=== PATIENT | female | born 1985 | race American Indian/Alaskan Native ===

== ENCOUNTER 2016-12-20 00:31 | Outpatient (CLI) | payer MEDICAID, OTHER | END 2016-12-20 02:18 | disposition home or self-care (01) | LOC: TRG 00:31 | PROVIDERS: ATTEND Obstetrics & Gynecology | DX: O62.9 Abnormality of forces of labor, unspecified (principal); Z87.891 Personal history of nicotine dependence; Z3A.38 38 weeks gestation of pregnancy ==

== ENCOUNTER 2016-12-22 20:07 | Outpatient (CLI) | payer SELFPAY ==
[2016-12-22 21:04] LABS: Hematocrit 33.1 % (30.3-42.9); Hemoglobin 11.1 gm/dl (10.1-14.3); Mean Corpuscular HGB Conc 34 % (30-34); Mean Corpuscular Hemoglobin 31 pg (28-32); Mean Corpuscular Volume 93 fl (79-97); Platelet Count 228 K/mm3 (140-440); Red Blood Count 3.57 M/mm3 (3.65-5.03); Red Cell Distribution Width 13.5 % (13.2-15.2); White Blood Count 9.1 K/mm3 (4.5-11.0)
[2016-12-22 21:17] LABS: Alanine Aminotransferase 9 units/L (7-56); Lactate Dehydrogenase 147 units/L (91-180); Uric Acid 3.3 mg/dL (3.5-7.6)
[2016-12-22 21:33] LABS: Bacteria,Urine 2+ /HPF (Negative); Bilirubin,Urine NEG (Negative); Blood,Urine NEG (Negative); Ketones,Urine NEG (Negative); Leukocyte Esterase,Urine LG (Negative); Mucus,Urine FEW /HPF; Nitrite,Urine NEG (Negative); Protein,Urine <15 mg/dL mg/dL (Negative); Urobilinogen,Urine < 2.0 mg/dL (<2.0)
[2016-12-22 21:52] VITALS: BP 132/70
[2016-12-22] MEDS ORDERED: TYLENOL PO ONE (22:00)
== END 2016-12-22 22:10 | disposition home or self-care (01) ==
LOC: TRG 20:07
PROVIDERS: ATTEND Obstetrics & Gynecology
DX: O47.1 False labor at or after 37 completed weeks of gestation (principal); Z87.891 Personal history of nicotine dependence; Z3A.38 38 weeks gestation of pregnancy
CPT/HCPCS: 36415; 59025; 81001; 82565; 83615; 84450; 84460; 84550; 85027

== ENCOUNTER 2017-01-01 00:04 | Outpatient (CLI) | payer SELFPAY ==
[2017-01-01 03:26] VITALS: BP 127/74
== END 2017-01-01 04:02 | disposition home or self-care (01) ==
LOC: TRG 00:04 → LD 00:11 → TRG 04:02
PROVIDERS: ATTEND Obstetrics & Gynecology
DX: O26.892 Other specified pregnancy related conditions, second trimester (principal); R10.2 Pelvic and perineal pain; Z87.891 Personal history of nicotine dependence; Z3A.39 39 weeks gestation of pregnancy
CPT/HCPCS: 59025

== ENCOUNTER 2017-01-01 15:35 | Inpatient (IN) | payer OTHER ==
[2017-01-01] MEDS ORDERED: XYLOCAINE 2% INFILTRATI ONE ×2 (19:08→23:22)
[2017-01-01] MEDS ORDERED: NARCAN 0.4 MG/1 ML IV PRN (19:08)
[2017-01-01] MEDS ORDERED: SUBLIMAZE IV PRN (19:08)
[2017-01-01] MEDS ORDERED: PHENERGAN PO PRN ×2 (19:08→23:47)
[2017-01-01] MEDS ORDERED: MINERAL OIL PO PRN (19:08)
[2017-01-01] MEDS ORDERED: STADOL IV PRN (19:08)
[2017-01-01] MEDS ORDERED: BRETHINE SUB-Q PRN (19:08)
[2017-01-01] MEDS ORDERED: ePHEDrine SULFATE IV PRN ×2 (19:08→21:00)
[2017-01-01] MEDS ORDERED: BRETHINE IVP PRN (19:08)
[2017-01-01] MEDS ORDERED: ZOFRAN IV PRN ×2 (19:08→23:47)
[2017-01-01] MEDS ORDERED: NUBAIN IV PRN (19:08)
--- NOTE | 2017-01-01 19:15 | History and Physical Report ---
History of Present Illness Date of examination: 01/01/17 Date of admission: 01/01/17 15:36 Chief complaint: contractions History of present illness: This is a 31 yo at 40 weeks here for contractions and noted to be 5/80/-2. She was admitted to labor and delivery Her course began at [facility] at 13 weeks. she has a hx of anemia on iron tablets. Past History Past Medical History: no pertinent history Past Surgical History: no surgical history, other (asthma ) [employer]ELOPER History: abnormal PAP smear, chlamydia, other (condylomma accuminata ) Family/Genetic History: hypertension, other (lung disease emphysema ) Social history: single, smoking, other (marijuana ). denies: alcohol abuse, prescription drug abuse - Obstetrical History Expected Date of Delivery: 01/02/17 Actual Gestation: 39 Week(s) 6 Day(s) : 3 Para: 2 Hx # Term Pregnancies: 2 Number of Pregnancies: 0 Spontaneous Abortions: 0 Induced : 0 Number of Living Children: 2 Medications and Allergies Allergies Allergy/AdvReac Type Severity Reaction Status Date / Time No Known Allergies Allergy Verified 01/01/17 16:42 Home Medications Medication Instructions Recorded Confirmed Last Taken Type ALBUTEROL NEB's [Proventil 0.083% 2.5 mg IH Q4H PRN #25 neb 11/03/14 01/01/17 Rx NEBS] Review of Systems All systems: negative Genitourinary: contractions - Vital Signs Vital signs: Vital Signs Pulse BP 113 H 126/78 01/01/17 15:51 01/01/17 15:51 Temp Pulse Resp BP Pulse Ox 98.4 F 97 H 20 149/84 100 01/01/17 16:44 01/01/17 18:51 01/01/17 16:44 01/01/17 18:42 01/01/17 18:51 - Physical Exam Breasts: Positive: deferred Cardiovascular: Regular rate, Normal S1 Lungs: Positive: Clear to auscultation, Normal air movement Abdomen: Positive: normal appearance, soft, normal bowel sounds. Negative: distention, tenderness Genitourinary (Female): Positive: normal external genitalia, normal perenium Vulva: both: normal Vagina: Positive: normal moisture Uterus: Positive: normal size, normal contour Anus/Rectum: Positive: normal perianal skin Extremities: Positive: normal Deep Tendon Reflex Grade: Normal +2 - Obstetrical FHR: category 1 Uterine Contraction Monitor Mode: External Cervical Dilatation: 5 Cervical Effacement Percentage: 80 station: -1 Uterine Contraction Pattern: Regular Uterine Tone Measurement Phase: Contraction Uterine Contraction Intensity: Moderate Results All other labs normal. Assessment and Plan A/P IUP 39+6 weeks active labor GBS neg - no antibiotics needed ivf, labs offered epidural expect vaginal delivery
[2017-01-01 19:21] LABS: Hematocrit 33.6 % (30.3-42.9); Hemoglobin 11.2 gm/dl (10.1-14.3); Mean Corpuscular HGB Conc 33 % (30-34); Mean Corpuscular Hemoglobin 31 pg (28-32); Mean Corpuscular Volume 94 fl (79-97); Platelet Count 226 K/mm3 (140-440); Red Blood Count 3.59 M/mm3 (3.65-5.03); White Blood Count 13.4 K/mm3 (4.5-11.0)
[2017-01-01] MEDS ORDERED: PITOCin/NS 30 UNIT/500ML 30 UNITS/500 ML BAG IV SCH ×2 (20:00)
[2017-01-01] MEDS ORDERED: PITOCin/NS 20 UNIT/1000ML DRIP 20 UNITS/1,000 ML BAG IV SCH ×2 (20:00→23:45)
[2017-01-01] MEDS ORDERED: LACTATED RINGERS 1,000 ML IV SCH (20:00)
[2017-01-01] MEDS ORDERED: ePHEDrine SULFATE ONE (20:26)
[2017-01-01] MEDS ORDERED: NARCAN 2 MG/2 ML IV PRN (21:00)
[2017-01-01] MEDS ORDERED: fentaNYL-BUPIV 2 MCG/ML-0.125% 200 MCG/100 ML BAG EPIDURAL SCH (21:00)
--- NOTE | 2017-01-01 21:01 | Anesthesia Consultation ---
Anesthesia Consult and Med Hx Date of service: 01/01/17 - Airway Anesthetic Teeth Evaluation: Good ROM Head & Neck: Adequate Mental/Hyoid Distance: Adequate Mallampati Class: Class II Intubation Access Assessment: Probably Good - Pulmonary Exam CTA: Yes - Cardiac Exam Cardiac Exam: RRR - Pre-Operative Health Status ASA Pre-Surgery Classification: ASA2 Proposed Anesthetic Plan: Epidural, Spinal - Pulmonary Hx Asthma: Yes (albuterol inhaler; last used yesterday on 12/31/16) COPD: No Hx Pneumonia: No - Cardiovascular System Hx Hypertension: No - Central Nervous System Hx Seizures: No Hx Psychiatric Problems: No - Endocrine Hx Renal Disease: No Hx End Stage Renal Disease: No Hx Hypothyroidism: No Hx Hyperthyroidism: No - Hematic Hx Anemia: No Hx Sickle Cell Disease: No - Other Systems Hx Alcohol Use: No Hx Obesity: Yes - Additional Comments Anesthesia Medical History Comments: +IUP
[2017-01-01] MEDS ORDERED: SENOKOT S PO SCH (23:45)
[2017-01-01] MEDS ORDERED: SODIUM CHLORIDE FLUSH SYRINGE 10 ML IV NR (23:45)
--- NOTE | 2017-01-01 23:46 | Procedure Note ---
OB Delivery Note - Delivery Date of Delivery: 01/01/17 Surgeon: OBDULIO TEJEDA Estimated blood loss: 300cc - Vaginal Delivery presentation: vertex Delivery position: OA Intrapartum events: mult.variable deceleratio Delivery induction: AROM Delivery augmentation: rupture of membranes, pitocin Delivery monitor: external FHT, external uterine Route of delivery: Delivery placenta: spontaneous Delivery cord: nuchal cord (x1 tight), 3 umbilical vessels Delivery laceration: none, 1st degree Delivery repair: vicryl Anesthesia: local, epidural Delivery comments: Patient was noted to be c/c/o at 2253. Patient commenced to pushing and delivered viable baby boy at 2321 easily delivering shoulder. Prior to delivery a cord was observed and easily reduced prior to delivering head. The nasopharynx and oropharynx suctioned while on the mothers chest. The cord was clamped and cut. the baby weighed 6 pounds 15 ounces =3141g. Apgars 8/9. The placenta delivered intact 3 vessel cord at 2325. Survey of perineum revealed a 1st degree laceration repaired in normal usual fashion. EBL 300cc. Patient tolerated procedure well. - A at 1 minute: 8 at 5 minutes: 9 Gender: Male
[2017-01-01] MEDS ORDERED: BENADRYL PO PRN (23:47)
[2017-01-01] MEDS ORDERED: LANSINOH TP PRN (23:47)
[2017-01-01] MEDS ORDERED: TORADOL IV PRN (23:47)
[2017-01-01] MEDS ORDERED: TYLENOL PO PRN (23:47)
[2017-01-01] MEDS ORDERED: NORCO 5/325 PO PRN (23:47)
[2017-01-01] MEDS ORDERED: MILK OF MAGNESIA PO PRN (23:47)
[2017-01-01] MEDS ORDERED: TUCKS PAD TP PRN (23:47)
[2017-01-01] MEDS ORDERED: PERCOCET 5/325 PO PRN (23:47)
[2017-01-01] MEDS ORDERED: DULCOLAX PR PRN (23:47)
[2017-01-01] MEDS ORDERED: PHENERGAN PR PRN (23:47)
[2017-01-02] MEDS: MOTRIN PO SCH ×5 (01:25→19:04)
[2017-01-02] MEDS ORDERED: M-M-R II VACCINE SUB-Q ONE ×2 (06:00→23:47)
[2017-01-02] MEDS ORDERED: BOOSTRIX IM ONE (06:00)
[2017-01-02] MEDS ORDERED: HURRICAINE ONE 20% TOPICAL SPRAY MM NR (08:00)
[2017-01-02] MEDS ORDERED: PRENATAL VITAMIN PO SCH (10:00)
[2017-01-02 10:47] LABS: Hematocrit 32.6 % (30.3-42.9)
[2017-01-02] MEDS: COLACE PO SCH ×2 (12:57→22:18)
--- NOTE | 2017-01-02 14:34 | Progress Note ---
Subjective Date of service: 01/02/17 Interval history: 1st day after normal vaginal delivery Patient is in the bed, comfortable. Pain is well controlled with pain meds. Ambulated well No residual neurological deficit. No anesthesia complications Objective - Constitutional Vitals: Vital Signs - 12hr 01/02/17 01/02/17 08:16 12:00 Temperature 97.6 F 97.9 F Pulse Rate [ 68 75 Right From Monitor] Respiratory 18 18 Rate Blood Pressure 122/73 121/74 [Left Arm] - Labs CBC & Chem 7: 01/02/17 10:20 Labs: Abnormal lab results 01/01/17 Range/Units 19:05 WBC 13.4 H (4.5-11.0) K/mm3 RBC 3.59 L (3.65-5.03) M/mm3 RDW 13.0 L (13.2-15.2) %
[2017-01-03] MEDS: MOTRIN PO SCH ×2 (00:29→06:07)
--- NOTE | 2017-01-03 08:31 | Progress Note ---
Assessment and Plan - Patient Problems (1) Term of male Current Visit: No Status: Acute Plan to address problem: patient doing well discharge home Subjective - Subjective Date of service: 01/03/17 Interval history: Patient without any significant complaints. Pain well controlled Patient reports: appetite normal, voiding normally, pain well controlled : doing well Objective - Vital Signs Latest vital signs: Vital Signs Temp Pulse Resp BP 01/03/17 08:19 98.5 F 80 18 118/68 01/03/17 01:31 97.4 F L 94 H 17 124/77 01/02/17 16:41 98.7 F 71 18 125/78 01/02/17 12:00 97.9 F 75 18 121/74 Intake and Output 01/02/17 01/03/17 01/03/17 22:59 06:59 14:59 Other: # Voids Void 1 - Exam Breasts: Present: deferred Uterus: Present: normal, firm
--- NOTE | 2017-01-03 08:32 | Discharge Summary ---
Providers - Providers Date of Admission: 01/01/17 15:36 Date of discharge: 01/03/17 Attending physician: OBDULIO TEJEDA MD Primary care physician: OBDULIO TEJEDA MD Hospitalization Reason for admission: active labor Delivery: Other procedures: none Discharge diagnosis: IUP at term delivered baby: male Hospital course: The patient was admitted in active labor and had a successful vaginal delivery. Her course was uneventful. The patient was discharged home once she met discharge criteria. Condition at discharge: Good Disposition: DC-01 TO HOME OR SELFCARE - Discharge Diagnoses (1) Term of male Status: Acute Plan - Discharge Medications Prescriptions: Ibuprofen [Motrin] 600 mg PO Q8H PRN #30 tablet PRN Reason: Pain oxyCODONE /ACETAMINOPHEN [Percocet 5/325] 1 tab PO Q6HR PRN #30 tablet PRN Reason: Pain - Provider Discharge Summary Activity: no sex for 6 weeks, no heavy lifting 4 weeks, no strenuous exercise Diet: routine Instructions: routine Additional instructions: [] Smoking cessation referral if applicable(refer to patient education folder for contact #) [] Refer to [facility] Booklet Call your doctor immediately for: * Fever > 100.5 * Heavy vaginal bleeding ( >1 pad per hour) * Severe persistent headache * Shortness of breath * Reddened, hot, painful area to leg or breast * Follow-up 4 weeks - Follow up plan Forms: Work/School Excuse Out Patient
[2017-01-03 17:45] VITALS: BP 121/71
== END 2017-01-03 15:10 | disposition home or self-care (01) | DRG 775 ==
LOC: TRG 15:35 → LD 15:36 → TRG 15:39 → OB 01-02 01:40
PROVIDERS: ADMIT Obstetrics & Gynecology; ATTEND Obstetrics & Gynecology
PROC: 0HQ9XZZ Repair Perineum Skin, External Approach (ICD-10-PCS; principal; 2017-01-01)
PROC: 10E0XZZ Delivery of Products of Conception, External Approach (ICD-10-PCS; 2017-01-01)
PROC: 10907ZC Drainage of Amniotic Fluid, Therapeutic from Products of Conception, Via Natural or Artificial Opening (ICD-10-PCS; 2017-01-01)
PROC: 00HU33Z Insertion of Infusion Device into Spinal Canal, Percutaneous Approach (ICD-10-PCS; 2017-01-01)
PROC: 3E0R3BZ Introduction of Anesthetic Agent into Spinal Canal, Percutaneous Approach (ICD-10-PCS; 2017-01-01)
DX: O76 Abnormality in fetal heart rate and rhythm complicating labor and delivery (principal); O69.1XX0 Labor and delivery complicated by cord around neck, with compression, not applicable or unspecified; O70.0 First degree perineal laceration during delivery; Z3A.39 39 weeks gestation of pregnancy; Z37.0 Single live birth; Z82.49 Family history of ischemic heart disease and other diseases of the circulatory system; Z83.6 Family history of other diseases of the respiratory system; O99.334 Smoking (tobacco) complicating childbirth; O99.52 Diseases of the respiratory system complicating childbirth; O99.214 Obesity complicating childbirth; J45.909 Unspecified asthma, uncomplicated; Z68.30 Body mass index [BMI] 30.0-30.9, adult
CPT/HCPCS: 36415; 59025; 85014; 85018; 85027; 86592; 86850; 86900; 86901; 88307; 99211; G0463; J2300; J2590; J3010; J7120

== ENCOUNTER 2017-12-29 18:15 | Emergency (ER) | payer OTHER, MEDICAID ==
[2017-12-29 19:09] VITALS: BP 117/70
== END 2017-12-29 19:10 | disposition left against medical advice (07) ==
LOC: ED 18:15
DX: M54.9 Dorsalgia, unspecified (principal); Z53.21 Procedure and treatment not carried out due to patient leaving prior to being seen by health care provider

== ENCOUNTER 2017-12-30 18:00 | Emergency (ER) | payer OTHER, MEDICAID ==
[2017-12-30] MEDS ORDERED: FLEXERIL PO ONE (21:54)
[2017-12-30] MEDS ORDERED: NORCO 5/325 PO ONE (21:54)
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
[2017-12-30 23:08] VITALS: BP 118/74
== END 2017-12-30 23:06 | disposition home or self-care (01) ==
LOC: ED 18:00
DX: S16.1XXA Strain of muscle, fascia and tendon at neck level, initial encounter (principal); M62.830 Muscle spasm of back; J45.909 Unspecified asthma, uncomplicated; V89.2XXA Person injured in unspecified motor-vehicle accident, traffic, initial encounter; Y93.89 Activity, other specified; Y92.89 Other specified places as the place of occurrence of the external cause; Y99.8 Other external cause status
CPT/HCPCS: 72040; 72100; 99283